=== PATIENT | female | born 1940 | race Caucasian/White ===

== ENCOUNTER 2017-04-28 23:19 | Inpatient (IN) | payer MEDICARE, OTHER ==
[2017-04-28] MEDS ORDERED: ALBUTEROL SULFATE 0.083% NEB 2.5 MG/3 ML AMPUL NEB ONE (23:24)
--- NOTE | 2017-04-28 23:27 | ER Document Report ---
ED General - General Stated Complaint: SHORTNESS OF BREATH Time Seen by Provider: 04/28/17 23:22 Notes: Patient is a 76-year-old female who presents with complaint of difficulty breathing. She has a history of COPD. She was just admitted to the hospital on March 30 for the same. She has had gradual worsening difficulty breathing and tonight much worse. When paramedics arrived she was having significant retractions and tachypnea. They placed her on BiPAP. They gave her Solu- Medrol as well as magnesium. She says she does feel some improved. She still speaking in 2-3 word sentences. She still has some accessory muscle use. She denies recent fevers. No chest pain. No other complaints at this time. Past Medical History - Social History Smoking Status: Former Smoker Frequency of alcohol use: None Drug Abuse: None Family History: Reviewed & Not Pertinent Review of Systems - Review of Systems Notes: My Normal Review Basic REVIEW OF SYSTEMS: CONSTITUTIONAL : Denies fever, chills, or sweats. Denies recent illness. EENT: Denies eye, ear, throat, or mouth pain or symptoms. Denies nasal or sinus congestion. RESPIRATORY: Wheezing. Difficulty breathing. GASTROINTESTINAL: Denies abdominal pain. Denies nausea, vomiting, or diarrhea. MUSCULOSKELETAL: Denies neck or back pain or joint pain or swelling. SKIN: Denies rash or skin lesions. NEUROLOGICAL: Denies altered mental status or loss of consciousness. Denies headache. Denies weakness or paralysis or loss of use of either side. Denies problems with gait or speech. Denies sensory or motor loss. ALL OTHER SYSTEMS REVIEWED AND NEGATIVE. Physical Exam - Notes Notes: General Appearance: Well nourished, alert, cooperative, moderate acute distress , no obvious discomfort. Vitals: reviewed, See vital signs table. Head: no swelling or tenderness to the head Eyes: PERRL, EOMI, Conjuctiva clear Mouth: No decreasd moisture Throat: No tonsillar inflammation, No airway obstruction, No lymphadenopathy Neck: Supple, no neck tenderness, No thyromegaly Lungs: diffuse wheezing, No rales, No rhonci, No accessory muscle use, poor air exchange bilaterally. Heart: Normal rate, Regular rythm, No murmur, no rub Abdomen: Normal BS, soft, No rigidity, No abdominal tenderness, No guarding, no rebound, no abdominal masses, no organomegaly Extremities: strength 5/5 in all extremities, good pulses in all extremities, no swelling or tenderness in the extremities, no edema. Skin: warm, dry, appropriate color, no rash Neuro: speech clear, oriented x 3, normal affect, responds appropriately to questions. Course - Laboratory Result Diagrams: 04/28/17 23:30 04/28/17 23:30 Laboratory results interpreted by me: 04/28/17 23:30 RDW 14.5 H Lymphocytes % 9.6 L Eosinophils % 10.7 H Absolute Eosinophils 1.0 H - EKG Interpretation by Me Additional EKG results interpreted by me: 04/29/17 00:12 EKG is reviewed and interpreted by me. EKG shows normal sinus rhythm with a rate of [address] segment elevation or depression. No ischemic T-wave inversions. AL interval, QRS duration, QTc intervals are within normal range. No old EKG available for comparison.
[2017-04-28 23:54] LABS: ABSOLUTE LYMPHOCYTES (AUTO) 0.9 10^3/uL (0.5-4.7); ABSOLUTE MONOCYTES (AUTO) 0.6 10^3/uL (0.1-1.4); ABSOLUTE NEUT (AUTO) 6.4 10^3/uL (1.7-8.2); BASOPHILS % (AUTO) 0.4 % (0-2); EOSINOPHILS % (AUTO) 10.7 % (0-6); HEMATOCRIT 39.1 % (36.0-47.0); HEMOGLOBIN 12.7 g/dL (12.0-15.5); LYMPHOCYTES % (AUTO) 9.6 % (13-45); MEAN CORPUSCULAR HEMOGLOBIN 30.9 pg (27.0-33.4); MEAN CORPUSCULAR HGB CONC 32.4 g/dL (32.0-36.0); MEAN CORPUSCULAR VOLUME 95 fl (80-97); MONOCYTES % (AUTO) 6.7 % (3-13); RED CELL DISTRIBUTION WIDTH 14.5 % (11.5-14.0); SEGMENTED NEUTROPHILS % (AUTO) 72.6 % (42-78); WHITE BLOOD COUNT 8.9 10^3/uL (4.0-10.5)
[2017-04-28 23:55] LABS: VENOUS BLOOD BASE EXCESS 7.5 mmol/L; VENOUS BLOOD HCO3 36.5 mmol/L (20-32); VENOUS BLOOD PH 7.3 (7.30-7.42)
[2017-04-29 00:15] LABS: ALANINE AMINOTRANSFERASE 27 U/L (9-52); ALBUMIN 4.3 g/dL (3.5-5.0); ALKALINE PHOSPHATASE 154 U/L (38-126); ANION GAP 11 (5-19); ASPARTATE AMINO TRANSFERASE 25 U/L (14-36); BILIRUBIN,DIRECT 0.5 mg/dL (0.0-0.4); BILIRUBIN,TOTAL 0.7 mg/dL (0.2-1.3); BLOOD UREA NITROGEN 19 mg/dL (7-20); CALCIUM 9.9 mg/dL (8.4-10.2); CARBON DIOXIDE 33 mmol/L (22-30); CHLORIDE 101 mmol/L (98-107); GLUCOSE 138 mg/dL (75-110); SODIUM 144.9 mmol/L (137-145); TOTAL PROTEIN 8.5 g/dL (6.3-8.2)
[2017-04-29 00:25] LABS: VENOUS BLOOD PCO2 76.1 mmHg (35-63)
--- NOTE | 2017-04-29 00:59 | RADIOLOGY REPORT (SQ) ---
EXAM DESCRIPTION: CHEST SINGLE VIEW COMPLETED DATE/TIME: 04/29/2017 12:32 am REASON FOR STUDY: dyspnea COMPARISON: None. EXAM PARAMETERS: NUMBER OF VIEWS: One view. TECHNIQUE: Single frontal radiographic view of the chest acquired. RADIATION DOSE: NA LIMITATIONS: None. FINDINGS: LUNGS AND PLEURA: Hyperlucent lungs, suggestive of emphysema. Ground-glass opacity at the right lung base. No pleural effusion or pneumothorax. MEDIASTINUM AND HILAR STRUCTURES: No masses. Contour normal. HEART AND VASCULAR STRUCTURES: Heart normal in size. No overt vascular congestion. BONES: No acute findings. HARDWARE: None in the chest. IMPRESSION: Ground-glass opacity at the right lung base, may represent atelectasis or pneumonia. Em physema. TECHNICAL DOCUMENTATION: JOB ID: [id number]
[2017-04-29] MEDS ORDERED: VANCOMYCIN HCL INJ 1000 MG VIAL IV ONE (01:19)
[2017-04-29] MEDS ORDERED: LEVOFLOXACIN 750 MG/D5W RTU 150 ML IV ONE (01:19)
[2017-04-29] MEDS ORDERED: LORAZEPAM INJ 2 MG/1 ML VIAL IV ONE (04:06)
[2017-04-29] MEDS ORDERED: OXYCODONE-ACETAMINOPHEN 5-325 MG TABLET PO ONE ×2 (04:06→14:00)
[2017-04-29] MEDS ORDERED: ALBUTEROL SULFATE 0.083% NEB 2.5 MG/3 ML AMPUL NEB ONE (04:07)
[2017-04-29] MEDS ORDERED: ALBUTEROL SULFATE 0.083% NEB 2.5 MG/3 ML AMPUL NEB PRN (08:38)
[2017-04-29] MEDS ORDERED: ACETAMINOPHEN 325 MG TABLET PO PRN (08:43)
[2017-04-29] MEDS ORDERED: GENTAMICIN SULFATE 0 MG in DEXTROSE 5%-WATER 100 ML IV NR (08:45)
--- NOTE | 2017-04-29 09:52 | EKG REPORT ---
SEVERITY:- BORDERLINE ECG - SINUS RHYTHM PROBABLE LEFT ATRIAL ABNORMALITY POOR R PROGRESSION ANT LEADS : Confirmed by: Vasu Salmon MD 29-Apr-2017 09:51:32
--- NOTE | 2017-04-29 10:13 | RADIOLOGY REPORT (SQ) ---
EXAM DESCRIPTION: CTA CHEST COMPLETED DATE/TIME: 04/29/2017 10:00 am REASON FOR STUDY: hypoxia COMPARISON: Chest x-ray dated 04/29/2017. TECHNIQUE: CT scan of the chest performed using helical scanning technique with dynamic intravenous contrast injection. Images reviewed with lung, soft tissue and bone windows. Reconstructed coronal and sagittal MPR images reviewed. Additional 3 dimensional post-processing performed to develop Maximal Intensity Projection images (IA P). All images stored on PACS. All CT scanners at this facility use dose modulation, iterative reconstruction, and/or weight based d osing when appropriate to reduce radiation dose to as low as reasonably achievable (ALARA). [facility]: Dose Right [facility]: CareDose [facility]: Dose Right [facility]: Teradose 4D [facility]: Quorum CONTRAST TYPE AND DOSE: contrast/concentration: Isovue 370.00 mg/ml; Total Contrast Delivered: 69.0 ml; Total Saline Delivered: 109.0 ml RENAL FUNCTION: BUN 19 creatinine 0.9. RADIATION DOSE: Up-to-date CT equipment and radiation dose reduction techniques were employed. CTDIv ol: 13.2 - 15.2 mGy. DLP: 661 mGy-cm. . LIMITATIONS: None. FINDINGS: LUNGS AND PLEURA: Emphysematous changes. Chronic scarring. Mild interstitial scarring in the right base. No masses, infiltrates, pneumothorax. No pleural effusions, calcifications. AORTA AND GREAT VESSELS: No aneurysm or dissection. HEART: No pericardial effusion. PULMONARY ARTERIES: No emboli visualized in the main pulmonary arteries or the segmental branches. HILAR AND MEDIASTINAL STRUCTURES: No identified masses or abnormal nodes. HARDWARE: None in the chest. UPPER ABDOMEN: No significant findings. Limited exam. THYROID AND OTHER SOFT TISSUES: No masses. No adenopathy. BONES: No acute or significant finding. 3D MIPS: Confirm above findings. OTHER: No other significant finding. IMPRESSION: NORMAL CTA OF THE CHEST. NO PULMONARY EMBOLI. COPD WITH EMPHYSEMA AND CHRONIC SCARRING. NO DEFINITE ACUTE FINDINGS. TECHNICAL DOCUMENTATION: JOB ID: [id number] Quality ID # [id number]: Final reports with documentation of one or more dose reduction techniques (e.g., Au tomated exposure control, adjustment of the mA and/or kV according to patient size, use of iterative reconstruction technique) 2010 [employer]- All Rights Reserved
[2017-04-29] MEDS ORDERED: GUAIFENESIN 600 MG TABLET.SA PO ONE (11:00)
[2017-04-29] MEDS ORDERED: ENOXAPARIN SODIUM INJ 40 MG/0.4 ML DISP.SYRIN SUBCUT ONE (11:00)
[2017-04-29] MEDS: CEFEPIME 2 GM/D5W RTU 2 GM/50 ML RTUPB IV SCH ×2 (12:15→22:59)
[2017-04-29] MEDS: NORMAL SALINE 1000 ML 1,000 ML IV PRN ×2 (12:16→13:57)
[2017-04-29] MEDS: AZITHROMYCIN 500 MG in DEXTROSE 5%-WATER 250 ML IV SCH (12:16)
[2017-04-29] MEDS ORDERED: ALBUTEROL SULFATE HFA (90 MCG/PUFF) 8 GM MDI (1 MDI/ER DISP) IH PRN (13:25)
[2017-04-29] MEDS ORDERED: (PENDING PHARMACY ID) (Lorazepam [Lorazepam] 2 MG) PO PRN (13:25)
--- NOTE | 2017-04-29 13:50 | PDOC H&P ---
History of Present Illness Admission Date/PCP: 04/29/17 08:38 Patient complains of: shortness of breath History of Present Illness: BYRON BLACK is a 76 year old female- presents to the ED from home with 3d hx of worsening shortness of breath and chest pressure with a hx of nocturnal O2 dep, nebulizer dep COPD. she reports progressive exercise fatigue, subjective fevers and chills but no cough, phlegm, wheezing or chest pain. She recently spent 4d in [facility] for similar symptoms, dx'd with pneumonia but no pathogen ever identified. she's never been intubated on mechanical ventilation. she recently moved to the area and has yet to establish with PCP or registered nurse cardiac. eval in ED shows her in resp distress with possible RLL infiltrate and CO2 retention requiring BIPAP due to increased work of breathing. we were asked to admit for further eval and management. Past Medical History Cardiac Medical History: Reports: Hypertension Denies: Congestive Heart Failure, Coronary Artery Disease, Myocardial Infarction Pulmonary Medical History: Reports: Chronic Obstructive Pulmonary Disease (COPD) Endocrine Medical History: Reports: None Psychiatric Medical History: Reports: Depression Past Surgical History Past Surgical History: Reports: Other - lung nodule resected after 8 months XRT for LI lung mass Social History Information Source: Patient Smoking Status: Former Smoker Frequency of Alcohol Use: Rare Hx Recreational Drug Use: No Hx Prescription Drug Abuse: No - Advance Directive Resuscitation Status: Full Code Family History Family History: Reviewed & Not Pertinent. denies: CAD, DM Parental Family History Reviewed: Yes Children Family History Reviewed: Yes Sibling(s) Family History Reviewed.: Yes Medication/Allergy Home Medications: Albuterol Sulfate [Proair HFA] 2 puff IH Q4HP PRN 04/29/17 Aripiprazole [Abilify 2 mg Tablet] 1 mg PO QHS 04/29/17 Aspirin [Aspirin 81 mg Chewable Tablet] 81 mg PO DAILY 04/29/17 Cholecalciferol (Vitamin D3) [Vitamin D3 1000 Unit Tablet] 1 tab PO DAILY L.acidoph & Paracasei,B.lactis [Probiotic] 1 cap PO DAILY 04/29/17 Lorazepam [Lorazepam] 2 mg PO HSP PRN 04/29/17 Losartan/Hydrochlorothiazide [Hyzaar 100-12.5 Tablet] 1 tab PO DAILY 04/29/17 Methylphenidate HCl [Ritalin] 20 mg PO TID 04/29/17 Mirtazapine [Remeron] 30 mg PO QHS 04/29/17 Oxycodone HCl/Acetaminophen [Percocet 10-325 mg Tablet] 1 tab PO QID 04/29/17 Tumeric 2 tab PO DAILY 04/29/17 Umeclidinium Brm/Vilanterol Tr [Anoro Ellipta 62.5-25 Mcg INH] 1 puff IH DAILY 04/29/17 Allergies/Adverse Reactions: Penicillins Allergy (Verified 04/29/17 00:35) Sulfa (Sulfonamide Antibiotics) Allergy (Verified 04/29/17 00:35) Review of Systems All systems: reviewed and no additional remarkable complaints except as stated - all systems reviewed, see above, remaining systems negative Physical Exam Vital Signs: Temp Pulse Resp BP Pulse Ox 98.2 F 85 18 143/65 H 100 04/29/17 11:47 04/29/17 11:47 04/29/17 11:47 04/29/17 11:47 04/29/17 11:47 Intake & Output 04/28/17 04/29/17 04/30/17 06:59 06:59 06:59 Weight 65.6 kg General appearance: PRESENT: mild distress, well-developed, well-nourished Head exam: PRESENT: atraumatic, normocephalic Eye exam: PRESENT: EOMI. ABSENT: conjunctival injection, scleral icterus Mouth exam: PRESENT: moist, neck supple Neck exam: PRESENT: full ROM. ABSENT: JVD, lymphadenopathy, meningismus, tenderness Respiratory exam: PRESENT: accessory muscle use, decreased breath sounds, prolonged expiratory phas. ABSENT: rhonchi, wheezes Cardiovascular exam: PRESENT: RRR. ABSENT: systolic murmur, tachycardia Pulses: PRESENT: normal radial pulses, normal dorsalis pedis pul GI/Abdominal exam: PRESENT: normal bowel sounds, soft. ABSENT: organolmegaly, tenderness Extremities exam: PRESENT: clubbing, full ROM. ABSENT: calf tenderness, pedal edema Musculoskeletal exam: PRESENT: ambulatory, full ROM Neurological exam: PRESENT: alert, awake, oriented to person, oriented to place , oriented to time, oriented to situation Psychiatric exam: PRESENT: appropriate affect, normal mood Skin exam: PRESENT: dry, warm Results Laboratory Results: 04/28/17 23:30 04/28/17 23:30 MCV 95 fl (80-97) 04/28/17 23:30 MCH 30.9 pg (27.0-33.4) 04/28/17 23:30 MCHC 32.4 g/dL (32.0-36.0) 04/28/17 23:30 RDW 14.5 % (11.5-14.0) H 04/28/17 23:30 Seg Neutrophils % 72.6 % (42-78) 04/28/17 23:30 Lymphocytes % 9.6 % (13-45) L 04/28/17 23:30 Monocytes % 6.7 % (3-13) 04/28/17 23:30 Eosinophils % 10.7 % (0-6) H 04/28/17 23:30 Basophils % 0.4 % (0-2) 04/28/17 23:30 Absolute Neutrophils 6.4 10^3/uL (1.7-8.2) 04/28/17 23:30 Absolute Lymphocytes 0.9 10^3/uL (0.5-4.7) 04/28/17 23:30 Absolute Monocytes 0.6 10^3/uL (0.1-1.4) 04/28/17 23:30 Absolute Eosinophils 1.0 10^3/uL (0.0-0.6) H 04/28/17 23:30 Absolute Basophils 0.0 10^3/uL (0.0-0.2) 04/28/17 23:30 VBG pH 7.30 (7.30-7.42) 04/28/17 23:30 VBG pCO2 76.1 mmHg (35-63) H* 04/28/17 23:30 VBG HCO3 36.5 mmol/L (20-32) H 04/28/17 23:30 VBG Base Excess 7.5 mmol/L 04/28/17 23:30 Chloride 101 mmol/L (98-107) 04/28/17 23:30 Carbon Dioxide 33 mmol/L (22-30) H 04/28/17 23:30 Anion Gap 11 (5-19) 04/28/17 23:30 Est GFR ( Amer) > 60 (>60) 04/28/17 23:30 Est GFR (Non-Af Amer) > 60 (>60) 04/28/17 23:30 Glucose 138 mg/dL (75-110) H 04/28/17 23:30 Calcium 9.9 mg/dL (8.4-10.2) 04/28/17 23:30 Total Bilirubin 0.7 mg/dL (0.2-1.3) 04/28/17 23:30 AST 25 U/L (14-36) 04/28/17 23:30 ALT 27 U/L (9-52) 04/28/17 23:30 Alkaline Phosphatase 154 U/L (38-126) H 04/28/17 23:30 Total Protein 8.5 g/dL (6.3-8.2) H 04/28/17 23:30 Albumin 4.3 g/dL (3.5-5.0) 04/28/17 23:30 Impressions: Chest X-Ray 04/29/17 00:00 IMPRESSION: Ground-glass opacity at the right lung base, may represent atelectasis or pneumonia. Emphysema. Chest/Abdomen CTA 04/29/17 00:00 IMPRESSION: NORMAL CTA OF THE CHEST. NO PULMONARY EMBOLI. COPD WITH EMPHYSEMA AND CHRONIC SCARRING. NO DEFINITE ACUTE FINDINGS. Assessment & Plan - Diagnosis (1) COPD exacerbation Is this a current diagnosis for this admission?: YesPlan: admit for aggressive pulmonary toilet, IV steroids and broad spectrum abx due to recent hospitalization, high risk for decompensation due to underlying medical conditions (2) Acute on chronic respiratory failure with hypoxia and hypercapnia Is this a current diagnosis for this admission?: YesPlan: intermittent BiPAP; supplemental O2 to maintain sats 88-92% (3) HTN (hypertension) Qualifiers: Hypertension type: essential hypertension Qualified Code(s): I10 - Essential (primary) hypertension Is this a current diagnosis for this admission?: YesPlan: resume home regimen (4) Major depression Qualifiers: Major depression recurrence: recurrent Active/Remission status: in full remission Qualified Code(s): F33.42 - Major depressive disorder, recurrent, in full remission Is this a current diagnosis for this admission?: YesPlan: resume home regimen (5) Chronic pain Qualifiers: Chronic pain type: chronic pain syndrome Qualified Code(s): G89.4 - Chronic pain syndrome Is this a current diagnosis for this admission?: YesPlan: resume home regimen - Time Time Spent: Greater than 70 Minutes Medications reviewed and adjusted accordingly: Yes - Inpatient Certification Based on my medical assessment, after consideration of the patient's comorbidities, presenting symptoms, or acuity I expect that the services needed warrant INPATIENT care.: Yes I certify that my determination is in accordance with my understanding of Medicare's requirements for reasonable and necessary INPATIENT services [42 CFR 412.3e].: Yes Medical Necessity: Significant Comorbidiites Make Outpatient Treatment Too Risky , Need For Continuous Telemetry Monitoring, Need for Nebulizer Therapy and Monitoring of Response, Need for IV Antibiotics, Risk of Complication if Not Cared For in Hospital
[2017-04-29] MEDS ORDERED: (PENDING PHARMACY ID) (Methylphenidate Hcl [Ritalin] 20 MG) PO SCH (14:00)
[2017-04-29] MEDS ORDERED: OXYCODONE HCL IR 5 MG TABLET PO ONE (14:00)
[2017-04-29] MEDS ORDERED: (PENDING PHARMACY ID) (Oxycodone Hcl/Acetaminophen [Percocet 10-325 Mg Tablet] 1 TAB) PO SCH (14:00)
[2017-04-29] MEDS: IPRATROPIUM/ALBUTEROL 0.5-2.5 MG/3 ML AMPUL NEB SCH ×2 (14:41→20:35)
[2017-04-29] MEDS: METHYLPHENIDATE HCL 5 MG TABLET PO SCH (16:31)
[2017-04-29] MEDS: METHYLPREDNISOLONE INJ 40 MG/1 ML SDV IV SCH (16:31)
[2017-04-29] MEDS: GENTAMICIN SULFATE 80 MG in DEXTROSE 5%-WATER 100 ML IV SCH (16:32)
[2017-04-29] MEDS: OXYCODONE-ACETAMINOPHEN 5-325 MG TABLET PO SCH (19:31)
[2017-04-29] MEDS: OXYCODONE HCL IR 5 MG TABLET PO SCH (19:31)
[2017-04-29] MEDS: MIRTAZAPINE 15 MG TABLET PO SCH (21:40)
[2017-04-29] MEDS: GUAIFENESIN 600 MG TABLET.SA PO SCH (21:41)
[2017-04-29] MEDS: ARIPIPRAZOLE 2 MG TABLET PO SCH (21:41)
[2017-04-29] MEDS: LORAZEPAM 1 MG TABLET PO PRN (21:47)
[2017-04-30] MEDS: OXYCODONE HCL IR 5 MG TABLET PO SCH ×5 (00:48→23:11)
[2017-04-30] MEDS: OXYCODONE-ACETAMINOPHEN 5-325 MG TABLET PO SCH ×5 (00:48→23:11)
[2017-04-30] MEDS: METHYLPREDNISOLONE INJ 40 MG/1 ML SDV IV SCH ×3 (02:48→18:16)
[2017-04-30 05:35] LABS: HEMATOCRIT 33.7 % (36.0-47.0); HEMOGLOBIN 11.1 g/dL (12.0-15.5); HGB HCT DIFFERENCE -0.4; MEAN CORPUSCULAR HEMOGLOBIN 30.6 pg (27.0-33.4); MEAN CORPUSCULAR VOLUME 93 fl (80-97); RED BLOOD COUNT 3.63 10^6/uL (3.72-5.28); RED CELL DISTRIBUTION WIDTH 14.5 % (11.5-14.0); WHITE BLOOD COUNT 12.3 10^3/uL (4.0-10.5)
[2017-04-30] MEDS: LANSOPRAZOLE 30 MG TAB.RAP.DR PO SCH (05:35)
[2017-04-30 05:43] LABS: ANION GAP 9 (5-19); BLOOD UREA NITROGEN 23 mg/dL (7-20); CALCIUM 9.9 mg/dL (8.4-10.2); CARBON DIOXIDE 29 mmol/L (22-30); CHLORIDE 105 mmol/L (98-107); CREATININE RESULT 0.77 mg/dL (0.52-1.25); GLUCOSE 123 mg/dL (75-110); MAGNESIUM 2.3 mg/dL (1.6-2.3); POTASSIUM 4.8 mmol/L (3.6-5.0); SODIUM 142.8 mmol/L (137-145)
[2017-04-30] MEDS ORDERED: GENTAMICIN SULFATE INJ 80 MG/2 ML VIAL ONE (05:55)
[2017-04-30] MEDS: GENTAMICIN SULFATE 80 MG in DEXTROSE 5%-WATER 100 ML IV SCH ×2 (06:03→18:15)
[2017-04-30 06:07] LABS: BASOPHILS % (MANUAL) 0 % (0-2); EOSINOPHILS % (MANUAL) 0 % (0-6); LYMPHOCYTES % (MANUAL) 2 % (13-45); TOTAL CELLS COUNTED 100
[2017-04-30 06:10] LABS: BURR CELLS SLIGHT; HYPOCHROMASIA SLIGHT; POIKILOCYTOSIS SLIGHT; TOXIC GRANULATION 1+; TOXIC VACUOLATION PRESENT
[2017-04-30 06:52] LABS: ARTERIAL BLOOD BASE EXCESS 2.7 mmol/L; ARTERIAL BLOOD O2 SATURATION 97.7 % (94-98)
[2017-04-30] MEDS: IPRATROPIUM/ALBUTEROL 0.5-2.5 MG/3 ML AMPUL NEB SCH ×3 (08:38→20:28)
[2017-04-30] MEDS ORDERED: (PENDING PHARMACY ID) (L.Acidoph & Paracasei,B.Lactis [Probiotic] 1 CAP) PO SCH (10:00)
[2017-04-30] MEDS ORDERED: (PENDING PHARMACY ID) (Losartan/Hydrochlorothiazide [Hyzaar 100-12.5 Tablet] 1 TAB) PO SCH (10:00)
[2017-04-30] MEDS: GUAIFENESIN 600 MG TABLET.SA PO SCH ×2 (11:31→21:20)
[2017-04-30] MEDS: ASPIRIN 81 MG TABLET, CHEWABLE PO SCH (11:32)
[2017-04-30] MEDS: LACTOBACILLUS ACIDOPHILUS 250 MG TAB PO SCH (11:32)
[2017-04-30] MEDS: METHYLPHENIDATE HCL 5 MG TABLET PO SCH ×3 (11:33→18:24)
[2017-04-30] MEDS: HYDROCHLOROTHIAZIDE 12.5 MG CAPSULE PO SCH (11:33)
[2017-04-30] MEDS: LOSARTAN POTASSIUM 50 MG TABLET PO SCH (11:34)
[2017-04-30] MEDS: ENOXAPARIN SODIUM INJ 40 MG/0.4 ML DISP.SYRIN SUBCUT SCH (11:59)
[2017-04-30] MEDS: CEFEPIME 2 GM/D5W RTU 2 GM/50 ML RTUPB IV SCH ×2 (12:00→22:10)
--- NOTE | 2017-04-30 13:15 | PDOC PROGRESS REPORT ---
Subjective Progress Note for:: 04/30/17 Subjective:: reason for visit: f/u resp failure, acute bronchitis, poss pna, copd [facility] hospital course: BYRON BLACK is a 76 year old female- presents to the ED from home with 3d hx of worsening shortness of breath and chest pressure with a hx of nocturnal O2 dep, nebulizer dep COPD. she reports progressive exercise fatigue, subjective fevers and chills but no cough, phlegm, wheezing or chest pain. She recently spent 4d in [facility] for similar symptoms, dx'd with pneumonia but no pathogen ever identified. she's never been intubated on mechanical ventilation. 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 eval in ED shows her in resp distress with possible RLL infiltrate and CO2 retention requiring BIPAP due to increased work of breathing. we were asked to admit for further eval and management. she weaned off the bipap without difficulty but is still easily winded with minimal exertion and still very tight, moving little air bilaterally. she denies chest pain, palpitations, n/v/d, swollen legs, fevers/chills. ROS: all systems reviewed, see above, remaining systems negative. Physical Exam Vital Signs: Temp Pulse Resp BP Pulse Ox 98.0 F 107 H 22 H 131/73 H 90 L 04/30/17 07:55 04/30/17 08:39 04/30/17 08:39 04/30/17 07:55 04/30/17 08:39 Intake & Output 04/29/17 04/30/17 05/01/17 06:59 06:59 06:59 Intake Total 1961 Balance 1961 Weight 68.2 kg General appearance: PRESENT: mild distress, well-developed, well-nourished Head exam: PRESENT: atraumatic, normocephalic Eye exam: PRESENT: EOMI. ABSENT: conjunctival injection, scleral icterus Mouth exam: PRESENT: moist, neck supple Neck exam: PRESENT: full ROM. ABSENT: JVD, lymphadenopathy, meningismus, tenderness Respiratory exam: PRESENT: accessory muscle use, decreased breath sounds, prolonged expiratory phase. ABSENT: rhonchi, wheezes Cardiovascular exam: PRESENT: RRR. ABSENT: systolic murmur, tachycardia Pulses: PRESENT: normal radial pulses, normal dorsalis pedis pul GI/Abdominal exam: PRESENT: normal bowel sounds, soft. ABSENT: organomegaly, tenderness Extremities exam: PRESENT: clubbing, full ROM. ABSENT: calf tenderness, pedal edema Musculoskeletal exam: PRESENT: ambulatory, full ROM Neurological exam: PRESENT: alert, awake, oriented to person, oriented to place , oriented to time, oriented to situation Psychiatric exam: PRESENT: appropriate affect, normal mood Skin exam: PRESENT: dry, warm Results Laboratory Results: 04/30/17 05:05 04/30/17 05:05 04/30/17 04/30/17 04/30/17 05:05 05:05 05:05 WBC 12.3 H RBC 3.63 L Hgb 11.1 L Hct 33.7 L MCV 93 MCH 30.6 MCHC 33.0 RDW 14.5 H Plt Count 304 Seg Neutrophils % Not Reportable Lymphocytes % Not Reportable Monocytes % Not Reportable Eosinophils % Not Reportable Basophils % Not Reportable Absolute Neutrophils Not Reportable Absolute Lymphocytes Not Reportable Absolute Monocytes Not Reportable Absolute Eosinophils Not Reportable Absolute Basophils Not Reportable Carbonic Acid HCO3/H2CO3 Ratio ABG pH ABG pCO2 ABG pO2 ABG HCO3 ABG O2 Saturation ABG Base Excess FiO2 Sodium 142.8 Potassium 4.8 Chloride 105 Carbon Dioxide 29 Anion Gap 9 BUN 23 H Creatinine 0.77 Est GFR ( Amer) > 60 Est GFR (Non-Af Amer) > 60 Glucose 123 H Lactic Acid 0.9 Calcium 9.9 Magnesium 2.3 04/30/17 06:30 WBC RBC Hgb Hct MCV MCH MCHC RDW Plt Count Seg Neutrophils % Lymphocytes % Monocytes % Eosinophils % Basophils % Absolute Neutrophils Absolute Lymphocytes Absolute Monocytes Absolute Eosinophils Absolute Basophils Carbonic Acid 1.38 H HCO3/H2CO3 Ratio 20:1 ABG pH 7.40 ABG pCO2 45.9 H ABG pO2 102.2 H ABG HCO3 28.0 H ABG O2 Saturation 97.7 ABG Base Excess 2.7 FiO2 2 LITERS Sodium Potassium Chloride Carbon Dioxide Anion Gap BUN Creatinine Est GFR ( Amer) Est GFR (Non-Af Amer) Glucose Lactic Acid Calcium Magnesium Impressions: Chest/Abdomen CTA 04/29/17 00:00 IMPRESSION: NORMAL CTA OF THE CHEST. NO PULMONARY EMBOLI. COPD WITH EMPHYSEMA AND CHRONIC SCARRING. NO DEFINITE ACUTE FINDINGS. Assessment & Plan - Diagnosis (1) COPD exacerbation Is this a current diagnosis for this admission?: YesPlan: continue aggressive pulmonary toilet, IV steroids and broad spectrum abx due to recent hospitalization, high risk for decompensation due to underlying medical conditions and recent hospitalization and treatment for pneumonia. can likely wean back the abx to single agent after 48hrs as early as tomorrow (2) Acute on chronic respiratory failure with hypoxia and hypercapnia Is this a current diagnosis for this admission?: YesPlan: intermittent BiPAP prn; supplemental O2 to maintain sats 88-92%. dr ulrich consulted, awaiting his input. wean O2 off as tolerated. (3) HTN (hypertension) Qualifiers: Hypertension type: essential hypertension Qualified Code(s): I10 - Essential (primary) hypertension Is this a current diagnosis for this admission?: YesPlan: well controlled (4) Major depression Qualifiers: Major depression recurrence: recurrent Active/Remission status: in full remission Qualified Code(s): F33.42 - Major depressive disorder, recurrent, in full remission Is this a current diagnosis for this admission?: Yes (5) Chronic pain Qualifiers: Chronic pain type: chronic pain syndrome Qualified Code(s): G89.4 - Chronic pain syndrome Is this a current diagnosis for this admission?: Yes - Time Time Spent with patient: 15-24 minutes Medications reviewed and adjusted accordingly: Yes
[2017-04-30] MEDS: AZITHROMYCIN 500 MG in DEXTROSE 5%-WATER 250 ML IV SCH (14:19)
[2017-04-30] MEDS: ARIPIPRAZOLE 2 MG TABLET PO SCH (21:20)
[2017-04-30] MEDS: LORAZEPAM 1 MG TABLET PO PRN (21:20)
[2017-04-30] MEDS: MIRTAZAPINE 15 MG TABLET PO SCH (21:20)
--- NOTE | 2017-04-30 21:47 | PDOC CONSULTATION ---
Consultation Consult Date: 04/30/17 Attending physician:: CELESTINE NASH Consult reason:: acute/chronic respiratory failure History of Present Illness Admission Date/PCP: 04/29/17 08:38 History of Present Illness: BYRON BLACK is a 76 year old female- presents to the ED from home with 3d hx of worsening shortness of breath .She is O2 dependent COPD and has been wearing oxygen or at least has been prescribed oxygen for the last 3 years she denies shortness of breath at rest but admits to dyspnea on exertion with activities of daily living she rarely coughs occasional yellow phlegm she denies hemoptysis her PPD status unknown she denies a history of chronic lung disease as a child or adolescent. She is a strong history of exposure to passive smoke as a child as well as an adult she herself is smoked a pack a day for 47 years but has not smoked in the last 16 years. 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 She has no Pets she denies any recent travel. She gets to occasional tightness in her chest sleeps 1-2 pillows no PND rare nocturnal cough intermittent episodes of edema. She carries a diagnosis of obstructive sleep apnea wears a CPAP at +9 cm of humidified H2O obstructive sleep apnea was diagnosed in 2015. Past Medical History Cardiac Medical History: Reports: Hypertension Denies: Congestive Heart Failure, Coronary Artery Disease, Myocardial Infarction Pulmonary Medical History: Reports: Chronic Obstructive Pulmonary Disease (COPD) , Sleep Apnea Endocrine Medical History: Reports: None Psychiatric Medical History: Reports: Depression, Other - Anxiety Past Surgical History Past Surgical History: Reports: Other - lung nodule resected 8 months XRT for LI lung mass.Open reduction internal Social History Information Source: Patient, Relative, [facility] Records Smoking Status: Former Smoker Cigars Per Day: 1 Number of Years Smokin Last Time Smoked: 16 years ago Passive smoke exposure as: Both Frequency of Alcohol Use: Rare Hx Recreational Drug Use: No Hx Prescription Drug Abuse: No Do you have pets?: No Have you had any respiratory illnesses as a child?: No Have you been exposed to any sick contacts recently?: No Have you had any recent respiratory illnesses?: No Have you travelled outside of [place] in the past 12 months?: No - Advance Directive Resuscitation Status: Full Code Family History Family History: Reviewed & Not Pertinent. denies: CAD, DM Parental Family History Reviewed: Yes Children Family History Reviewed: Yes Sibling(s) Family History Reviewed.: Yes Medication/Allergy Home Medications: Albuterol Sulfate [Proair HFA] 2 puff IH Q4HP PRN 04/29/17 Aripiprazole [Abilify 2 mg Tablet] 1 mg PO QHS 04/29/17 Aspirin [Aspirin 81 mg Chewable Tablet] 81 mg PO DAILY 04/29/17 Cholecalciferol (Vitamin D3) [Vitamin D3 1000 Unit Tablet] 1 tab PO DAILY L.acidoph & ParacayliniB.lactis [Probiotic] 1 cap PO DAILY 04/29/17 Lorazepam [Lorazepam] 2 mg PO HSP PRN 04/29/17 Losartan/Hydrochlorothiazide [Hyzaar 100-12.5 Tablet] 1 tab PO DAILY 04/29/17 Methylphenidate HCl [Ritalin] 20 mg PO Q8 04/29/17 Mirtazapine [Remeron] 30 mg PO QHS 04/29/17 Oxycodone HCl/Acetaminophen [Percocet 10-325 mg Tablet] 1 tab PO Q6 04/29/17 Tumeric 2 tab PO DAILY 04/29/17 Umeclidinium Brm/Vilanterol Tr [Anoro Ellipta 62.5-25 Mcg INH] 1 puff IH DAILY 04/29/17 Allergies/Adverse Reactions: Penicillins Allergy (Verified 04/29/17 00:35) Sulfa (Sulfonamide Antibiotics) Allergy (Verified 04/29/17 00:35) Review of Systems All systems: reviewed and no additional remarkable complaints except as stated Physical Exam Vital Signs: Temp Pulse Resp BP Pulse Ox 98.0 F 107 H 22 H 131/73 H 90 L 04/30/17 07:55 04/30/17 08:39 04/30/17 08:39 04/30/17 07:55 04/30/17 08:39 Intake & Output 04/29/17 04/30/17 05/01/17 06:59 06:59 06:59 Intake Total 1961 Balance 1961 Weight 68.2 kg General appearance: PRESENT: no acute distress, cooperative, well-developed, well-nourished Head exam: PRESENT: normocephalic Eye exam: PRESENT: conjunctiva pale, EOMI Mouth exam: PRESENT: moist, neck supple, tongue midline Neck exam: ABSENT: carotid bruit, JVD, lymphadenopathy, thyromegaly Respiratory exam: PRESENT: decreased breath sounds, prolonged expiratory phas Cardiovascular exam: PRESENT: RRR, +S1, +S2 Pulses: PRESENT: normal radial pulses GI/Abdominal exam: PRESENT: normal bowel sounds, soft. ABSENT: distended, guarding, mass, organolmegaly, rebound, tenderness Rectal exam: PRESENT: deferred Musculoskeletal exam: PRESENT: normal inspection Neurological exam: PRESENT: alert, awake Psychiatric exam: PRESENT: normal mood Skin exam: PRESENT: dry, warm Results Laboratory Results: 04/30/17 05:05 04/30/17 05:05 04/30/17 04/30/17 04/30/17 05:05 05:05 05:05 WBC 12.3 H RBC 3.63 L Hgb 11.1 L Hct 33.7 L MCV 93 MCH 30.6 MCHC 33.0 RDW 14.5 H Plt Count 304 Seg Neutrophils % Not Reportable Lymphocytes % Not Reportable Monocytes % Not Reportable Eosinophils % Not Reportable Basophils % Not Reportable Absolute Neutrophils Not Reportable Absolute Lymphocytes Not Reportable Absolute Monocytes Not Reportable Absolute Eosinophils Not Reportable Absolute Basophils Not Reportable Carbonic Acid HCO3/H2CO3 Ratio ABG pH ABG pCO2 ABG pO2 ABG HCO3 ABG O2 Saturation ABG Base Excess FiO2 Sodium 142.8 Potassium 4.8 Chloride 105 Carbon Dioxide 29 Anion Gap 9 BUN 23 H Creatinine 0.77 Est GFR ( Amer) > 60 Est GFR (Non-Af Amer) > 60 Glucose 123 H Lactic Acid 0.9 Calcium 9.9 Magnesium 2.3 04/30/17 06:30 WBC RBC Hgb Hct MCV MCH MCHC RDW Plt Count Seg Neutrophils % Lymphocytes % Monocytes % Eosinophils % Basophils % Absolute Neutrophils Absolute Lymphocytes Absolute Monocytes Absolute Eosinophils Absolute Basophils Carbonic Acid 1.38 H HCO3/H2CO3 Ratio 20:1 ABG pH 7.40 ABG pCO2 45.9 H ABG pO2 102.2 H ABG HCO3 28.0 H ABG O2 Saturation 97.7 ABG Base Excess 2.7 FiO2 2 LITERS Sodium Potassium Chloride Carbon Dioxide Anion Gap BUN Creatinine Est GFR ( Amer) Est GFR (Non-Af Amer) Glucose Lactic Acid Calcium Magnesium Impressions: Chest X-Ray 04/29/17 00:00 IMPRESSION: Ground-glass opacity at the right lung base, may represent atelectasis or pneumonia. Emphysema. Chest/Abdomen CTA 04/29/17 00:00 IMPRESSION: NORMAL CTA OF THE CHEST. NO PULMONARY EMBOLI. COPD WITH EMPHYSEMA AND CHRONIC SCARRING. NO DEFINITE ACUTE FINDINGS. Assessment & Plan - Diagnosis (1) Acute on chronic respiratory failure with hypoxia and hypercapnia Is this a current diagnosis for this admission?: Yes (2) COPD exacerbation Is this a current diagnosis for this admission?: Yes
[2017-05-01] MEDS: METHYLPREDNISOLONE INJ 40 MG/1 ML SDV IV SCH ×2 (03:20→10:02)
[2017-05-01] MEDS: OXYCODONE HCL IR 5 MG TABLET PO SCH ×2 (05:48→11:13)
[2017-05-01] MEDS: OXYCODONE-ACETAMINOPHEN 5-325 MG TABLET PO SCH ×2 (05:48→11:15)
[2017-05-01] MEDS: GENTAMICIN SULFATE 80 MG in DEXTROSE 5%-WATER 100 ML IV SCH (05:49)
[2017-05-01] MEDS: LANSOPRAZOLE 30 MG TAB.RAP.DR PO SCH (05:49)
[2017-05-01 06:07] LABS: ABSOLUTE LYMPHOCYTES (AUTO) 0.6 10^3/uL (0.5-4.7); ABSOLUTE MONOCYTES (AUTO) 0.5 10^3/uL (0.1-1.4); ABSOLUTE NEUT (AUTO) 9.7 10^3/uL (1.7-8.2); BASOPHILS % (AUTO) 0.2 % (0-2); EOSINOPHILS % (AUTO) 0.1 % (0-6); HEMATOCRIT 35.7 % (36.0-47.0); HEMOGLOBIN 11.8 g/dL (12.0-15.5); HGB HCT DIFFERENCE -0.3; LYMPHOCYTES % (AUTO) 5.7 % (13-45); MEAN CORPUSCULAR VOLUME 94 fl (80-97); MONOCYTES % (AUTO) 4.9 % (3-13); RED CELL DISTRIBUTION WIDTH 14.8 % (11.5-14.0); SEGMENTED NEUTROPHILS % (AUTO) 89.1 % (42-78); WHITE BLOOD COUNT 10.9 10^3/uL (4.0-10.5)
[2017-05-01 06:27] LABS: ANION GAP 11 (5-19); BLOOD UREA NITROGEN 24 mg/dL (7-20); CALCIUM 9.9 mg/dL (8.4-10.2); CARBON DIOXIDE 30 mmol/L (22-30); CHLORIDE 104 mmol/L (98-107); CREATININE RESULT 0.76 mg/dL (0.52-1.25); GLUCOSE 101 mg/dL (75-110); POTASSIUM 4.9 mmol/L (3.6-5.0); SODIUM 144.6 mmol/L (137-145)
[2017-05-01 06:30] LABS: GENTAMICIN-TROUGH 1.3 ug/mL (<2.0)
[2017-05-01 08:15] LABS: GENTAMICIN-PEAK 5.8 ug/mL (5.0-10.0)
[2017-05-01] MEDS: IPRATROPIUM/ALBUTEROL 0.5-2.5 MG/3 ML AMPUL NEB SCH ×2 (08:54→14:26)
[2017-05-01] MEDS: ENOXAPARIN SODIUM INJ 40 MG/0.4 ML DISP.SYRIN SUBCUT SCH (08:59)
[2017-05-01] MEDS ORDERED: ROFLUMILAST 500 MCG TABLET PO SCH (10:00)
[2017-05-01] MEDS: LACTOBACILLUS ACIDOPHILUS 250 MG TAB PO SCH (10:02)
[2017-05-01] MEDS: LOSARTAN POTASSIUM 50 MG TABLET PO SCH (10:02)
[2017-05-01] MEDS: METHYLPHENIDATE HCL 5 MG TABLET PO SCH ×2 (10:02→14:12)
[2017-05-01] MEDS: GUAIFENESIN 600 MG TABLET.SA PO SCH (10:02)
[2017-05-01] MEDS: ASPIRIN 81 MG TABLET, CHEWABLE PO SCH (10:02)
[2017-05-01] MEDS: HYDROCHLOROTHIAZIDE 12.5 MG CAPSULE PO SCH (10:02)
[2017-05-01] MEDS: AZITHROMYCIN 500 MG in DEXTROSE 5%-WATER 250 ML IV SCH (13:56)
--- NOTE | 2017-05-01 17:00 | PDOC PROGRESS REPORT ---
Subjective Progress Note for:: 05/01/17 Subjective:: I feel better Physical Exam Vital Signs: Temp Pulse Resp BP Pulse Ox 98.6 F 105 H 18 124/51 L 94 05/01/17 16:46 05/01/17 16:46 05/01/17 16:46 05/01/17 16:46 05/01/17 16:46 Intake & Output 04/30/17 05/01/17 05/02/17 06:59 06:59 06:59 Intake Total 1961 3173 592 Balance 1961 3173 592 Weight 68.2 kg 70.1 kg General appearance: PRESENT: no acute distress, disheveled, well-developed, well -nourished Head exam: PRESENT: normocephalic Eye exam: PRESENT: conjunctiva pale, EOMI Mouth exam: PRESENT: dry mucosa, neck supple, tongue midline Neck exam: ABSENT: carotid bruit, JVD, lymphadenopathy, thyromegaly Respiratory exam: PRESENT: decreased breath sounds, prolonged expiratory phas, rhonchi, symmetrical, unlabored Cardiovascular exam: PRESENT: RRR, +S1, +S2 Pulses: PRESENT: normal radial pulses GI/Abdominal exam: PRESENT: normal bowel sounds, soft. ABSENT: distended, guarding, mass, organolmegaly, rebound, tenderness Rectal exam: PRESENT: deferred Musculoskeletal exam: PRESENT: normal inspection Neurological exam: PRESENT: alert, awake Psychiatric exam: PRESENT: normal mood Skin exam: PRESENT: dry, warm Results Laboratory Results: 05/01/17 05:33 05/01/17 05:33 05/01/17 05/01/17 05:33 05:33 WBC 10.9 H RBC 3.80 Hgb 11.8 L Hct 35.7 L MCV 94 MCH 31.0 MCHC 33.0 RDW 14.8 H Plt Count 327 Seg Neutrophils % 89.1 H Lymphocytes % 5.7 L Monocytes % 4.9 Eosinophils % 0.1 Basophils % 0.2 Absolute Neutrophils 9.7 H Absolute Lymphocytes 0.6 Absolute Monocytes 0.5 Absolute Eosinophils 0.0 Absolute Basophils 0.0 Sodium 144.6 Potassium 4.9 Chloride 104 Carbon Dioxide 30 Anion Gap 11 BUN 24 H Creatinine 0.76 Est GFR ( Amer) > 60 Est GFR (Non-Af Amer) > 60 Glucose 101 Calcium 9.9 Impressions: Chest X-Ray 04/29/17 00:00 IMPRESSION: Ground-glass opacity at the right lung base, may represent atelectasis or pneumonia. Emphysema. Chest/Abdomen CTA 04/29/17 00:00 IMPRESSION: NORMAL CTA OF THE CHEST. NO PULMONARY EMBOLI. COPD WITH EMPHYSEMA AND CHRONIC SCARRING. NO DEFINITE ACUTE FINDINGS. Assessment & Plan - Diagnosis (1) Acute on chronic respiratory failure with hypoxia and hypercapnia Is this a current diagnosis for this admission?: YesPlan: Acute episode resolved at or near baseline (2) COPD exacerbation Is this a current diagnosis for this admission?: YesPlan: Continue current bronchodilator therapy
[2017-05-01 17:01] VITALS: BP 150/82
--- NOTE | 2017-05-01 17:42 | PDOC DISCHARGE SUMMARY ---
General - Admit/Disc Date/PCP Admission Date/Primary Care Provider: 04/29/17 08:38 Discharge Date: 05/01/17 - Discharge Diagnosis (1) Acute on chronic respiratory failure with hypoxia and hypercapnia Is this a current diagnosis for this admission?: YesSummary: The patient is instructed to wear her oxygen at all times. She is especially to wear when she is up and moving about. Follow-up as an outpatient with Dr. Mcgill in the next 2-3 weeks. (2) COPD exacerbation Is this a current diagnosis for this admission?: YesSummary: Improved overall. Continue prednisone taper and 2 more days of antibiotics for total of 5 days. Continue oxygen therapy and follow-up with pulmonology as an outpatient. (3) Chronic pain Is this a current diagnosis for this admission?: YesSummary: Continue home medications. (4) HTN (hypertension) Is this a current diagnosis for this admission?: YesSummary: Stable. Continue home medications. (5) Major depression Is this a current diagnosis for this admission?: YesSummary: Continue home medications. Follow-up with PCP. - Additional Information Resuscitation Status: Full Code Home Medications: Albuterol Sulfate [Proair HFA] 2 puff IH Q4HP PRN 04/29/17 Aripiprazole [Abilify 2 mg Tablet] 1 mg PO QHS 04/29/17 Aspirin [Aspirin 81 mg Chewable Tablet] 81 mg PO DAILY 04/29/17 Cholecalciferol (Vitamin D3) [Vitamin D3 1000 Unit Tablet] 1 tab PO DAILY L.acidoph & Paracasei,B.lactis [Probiotic] 1 cap PO DAILY 04/29/17 Lorazepam 2 mg PO HSP PRN 04/29/17 Losartan/Hydrochlorothiazide [Hyzaar 100-12.5 Tablet] 1 tab PO DAILY 04/29/17 Methylphenidate HCl [Ritalin] 20 mg PO Q8 04/29/17 Mirtazapine [Remeron] 30 mg PO QHS 04/29/17 Oxycodone HCl/Acetaminophen [Percocet 10-325 mg Tablet] 1 tab PO Q6 04/29/17 Tumeric 2 tab PO DAILY 04/29/17 Umeclidinium Brm/Vilanterol Tr [Anoro Ellipta 62.5-25 Mcg INH] 1 puff IH DAILY 04/29/17 Azithromycin [Zithromax 250 mg Tablet] 500 mg PO DAILY #3 tablet 05/01/17 Guaifenesin [Mucinex Sr 600 mg Tablet.sa] 600 mg PO Q12 #10 tablet.sa 05/01/17 Prednisone 20 mg PO ASDIR #15 tablet 05/01/17 History of Present Illness History of Present Illness: HPI as per admitting physician: Patient complains of: shortness of breath History of Present Illness: BYRON BLACK is a 76 year old female- presents to the ED from home with 3d hx of worsening shortness of breath and chest pressure with a hx of nocturnal O2 dep, nebulizer dep COPD. she reports progressive exercise fatigue, subjective fevers and chills but no cough, phlegm, wheezing or chest pain. She recently spent 4d in [facility] for similar symptoms, dx'd with pneumonia but no pathogen ever identified. she's never been intubated on mechanical ventilation. she recently moved to the area and has yet to establish with PCP or secretary bookkeeper. eval in ED shows her in resp distress with possible RLL infiltrate and CO2 retention requiring BIPAP due to increased work of breathing. we were asked to admit for further eval and management. Hospital Course Hospital Course: Patient was admitted to inpatient service. She was started on steroid therapy and antibiotics. She was placed on gentamicin, cefepime, and azithromycin. Overall the patient did well. Her antibiotic coverage was tapered down to simply azithromycin. She did continue to have shortness of breath whenever she was ambulating. The patient did not wear her oxygen here in the hospital like she is prescribed. She should be wearing it 24 hours a day and even here in the hospital as she was noncompliant with oxygen use. Oxygen the patient had improvement in her O2 sats. Her COPD is much more stable she should continue 2 more days of antibiotic coverage for total of 5 days as well as slow prednisone taper. She will need to follow-up with a local secretary bookkeeper. She met Dr. Mcgill here in the hospital and wishes to follow-up with him. Physical Exam Vital Signs: Temp Pulse Resp BP Pulse Ox 98.6 F 100 17 163/76 H 94 05/01/17 11:48 05/01/17 11:48 05/01/17 11:48 05/01/17 11:48 05/01/17 11:48 Intake & Output 04/30/17 05/01/17 05/02/17 06:59 06:59 06:59 Intake Total 1961 3173 592 Balance 1961 3173 592 Weight 68.2 kg 70.1 kg GENERAL: This is a well-developed and nourished appearing white female resting in bed without her oxygen on but in no acute distress. HEART: Regular rate and rhythm. No murmurs, rubs or gallops. LUNGS: Coarse bilateral breath sounds. Equal rise and fall of the chest. ABDOMEN: Soft, nontender, nondistended with normoactive bowel sounds EXTREMETIES: No clubbing, cyanosis or edema. 2+ peripheral pulses bilaterally. NEURO: Awake, alert and oriented 3. Cranial nerves II through XII are grossly intact. Results Laboratory Results: 05/01/17 05:33 05/01/17 05:33 05/01/17 05/01/17 05:33 05:33 WBC 10.9 H RBC 3.80 Hgb 11.8 L Hct 35.7 L MCV 94 MCH 31.0 MCHC 33.0 RDW 14.8 H Plt Count 327 Seg Neutrophils % 89.1 H Lymphocytes % 5.7 L Monocytes % 4.9 Eosinophils % 0.1 Basophils % 0.2 Absolute Neutrophils 9.7 H Absolute Lymphocytes 0.6 Absolute Monocytes 0.5 Absolute Eosinophils 0.0 Absolute Basophils 0.0 Sodium 144.6 Potassium 4.9 Chloride 104 Carbon Dioxide 30 Anion Gap 11 BUN 24 H Creatinine 0.76 Est GFR ( Amer) > 60 Est GFR (Non-Af Amer) > 60 Glucose 101 Calcium 9.9 Impressions: Chest X-Ray 04/29/17 00:00 IMPRESSION: Ground-glass opacity at the right lung base, may represent atelectasis or pneumonia. Emphysema. Chest/Abdomen CTA 04/29/17 00:00 IMPRESSION: NORMAL CTA OF THE CHEST. NO PULMONARY EMBOLI. COPD WITH EMPHYSEMA AND CHRONIC SCARRING. NO DEFINITE ACUTE FINDINGS. Qualifiers PATEINT BEING DISCHARGED WITH ANY OF THE FOLLOWING DIAGNOSIS?: No Plan Time Spent: Greater than 30 Minutes
[2017-05-02] MEDS ORDERED: AZITHROMYCIN 250 MG TABLET PO SCH (10:00)
== END 2017-05-01 17:24 | disposition home or self-care (01) | DRG 190 ==
LOC: ER 23:19 → EH 04-29 08:22 → UNDOADMIN 04-29 08:22 → EH 04-29 08:38 → 3S 04-29 10:02
PROVIDERS: ADMIT Internal Medicine; ATTEND Internal Medicine
PROC: 5A09357 Assistance with Respiratory Ventilation, Less than 24 Consecutive Hours, Continuous Positive Airway Pressure (ICD-10-PCS; principal; 2017-04-28)
PROC: 3E0F73Z Introduction of Anti-inflammatory into Respiratory Tract, Via Natural or Artificial Opening (ICD-10-PCS; 2017-04-29)
DX: J44.1 Chronic obstructive pulmonary disease with (acute) exacerbation (principal); J96.21 Acute and chronic respiratory failure with hypoxia; J96.22 Acute and chronic respiratory failure with hypercapnia; G89.29 Other chronic pain; I10 Essential (primary) hypertension; F32.9 Major depressive disorder, single episode, unspecified; G47.30 Sleep apnea, unspecified; F41.9 Anxiety disorder, unspecified; Z88.0 Allergy status to penicillin; Z91.19 Patient's noncompliance with other medical treatment and regimen; Z99.81 Dependence on supplemental oxygen; Z87.891 Personal history of nicotine dependence; Z88.2 Allergy status to sulfonamides; Z83.3 Family history of diabetes mellitus; Z82.49 Family history of ischemic heart disease and other diseases of the circulatory system
CPT/HCPCS: 36415; 71010; 71275; 80048; 80053; 80170; 82803; 83605; 83735; 85025; 87040; 93005; 93010; 94640; 96365; 96368; 96375; 99285; J0456; J0692; J1580; J1650; J1956; J2060; J2920; J3370; J3490; J7030; J7060; J7620